=== PATIENT | male | born 1975 | race Caucasian/White ===

== ENCOUNTER → 2017-05-07 | Outpatient (CLI) | payer OTHER ==
[~2017-05-07] MED LIST: ABILIFY10 MG PO; AMITIZA 24 MCG24 MCG PO; AMITRIPTYLINE H25 M2 PO; ARTHRITIS PAIN650 M3 OR; ATIVAN1 MG PO; BACLOFEN 10 MG10 MG PO; BACLOFEN 10MG T10 M1 PO; BACLOFEN 10MG T10 MG PO; BACTRIM DS TAB1 EACH PO; CLONAZEPAM 0.50.5 M1 PO; CLONAZEPAM 1 MG1 M1 PO; CLONIDINE0.1 PO; COLACE100 MG OR; CYMBALTA60 MG PO; DARVOCET-N 1001 EAC1 PO; DEPAKOTE ER500 MG PO; DESYREL100 MG PO; DIAZEPAM 10 MG10 M1 OR; DIAZEPAM 5 MG5 M1 PO; DILAUDID 4 MG TA4 M1 PO; DILAUDID 4 MG TA4 MG PO; DURAGESIC1 EAC2 TRANSDERM; EFFEXOR 5050 MG/1 T1 PO; EFFEXOR75 MG PO; ELAVIL PO; FENTANYL PATCH75 MCG TRANSDERM; FISH OIL 1,0001 EAC5 PO; FLEXERIL PO; FUROSEMIDE PO; HYDROCODON-ACE1 EAC5 PO; HYDROCODON-ACE1 EAC8 PO; HYDROCORTISONE3011 RECTAL; IMIPRAMINE HCL25 MG; IMIPRAMINE HCL25 MG PO; LASIX 20 MG TAB20 MG PO; LASIX 40 MG TAB40 M2 PO; LIDODERM 5%1 PATC1 TOP; LIDODERM 5%1 PATCH TD; LIDODERM 5%1 PATCH TOP; LYRICA 50 MG50 MG PO; LYRICA 75 MG CA75 MG PO; MEDROLDOSEPACK PO; MELOXICAM7.5 MG PO; METHOCARBAMOL500 M2 PO; MINIPRESS2 MG PO; MS CONTIN15 MG PO; MS CONTIN30 MG PO; NABUMETONE 750750 M1 PO; NAPROSYN500 MG PO; NEURONTIN600 MG PO; NICOTINE TRANSD21 M1; NORCO 10-325 T1 EACH PO; NORCO 5-325 TA1 EACH PO; OXYCODONE HCL5 M1; OXYCODONE-APAP1 EAC6 PO; OXYCONTIN CR 1010 M1 OR; PERCOCET 5-3251 EACH OR; PERCOCET 5-3251 EACH PO; PERCOCET 7.5-31 EACH PO; PERCOCET PO; PRISTIQ100 MG PO; RAPAFLO8 MG PO; RELAFEN PO; RELAFEN750 MG PO; RISPERDAL 1 MG T1 MG PO; RISPERDAL 3 MG T3 M1 PO; RISPERDAL2 MG PO; SUBOXONE 8 MG-1 EAC2 SL; TAMSULOSIN HCL0.4 M1 PER TUBE; TAMSULOSIN HCL0.4 MG PO; TEGRETOL XR100 MG PO; TEGRETOL XR200 MG PO; TIZANIDINE HCL4 M1 PO; TIZANIDINE HCL4 MG PO; TOFRANIL25 MG PO; TRAZADONE PO; TRAZODONE 150150 M1 PO; TRILEPTAL 300300 MG PO; TRILEPTAL150 MG PO; Trazodone PO; VALPROIC ACID250 MG PO; VENLAFAXINE PO; VISTARIL 25 MG25 M1 PO; VITAMINC500 PO; XANAX1 MG PO; baclofen PO
== END ==
LOC: RAD 14:27
DX: S99.912A Unspecified injury of left ankle, initial encounter (principal); X58.XXXA Exposure to other specified factors, initial encounter; Y93.89 Activity, other specified; Y92.89 Other specified places as the place of occurrence of the external cause; Y99.8 Other external cause status

== ENCOUNTER → 2017-07-21 | Outpatient (CLI) | payer OTHER | LOC: RAD 06:02 | DX: M47.892 Other spondylosis, cervical region (principal); M47.897 Other spondylosis, lumbosacral region; N32.89 Other specified disorders of bladder ==

== ENCOUNTER 2019-08-26 17:23 | Emergency (ER) | payer OTHER ==
[~2019-08-26] VITALS: Ht 190.5 cm; Wt 118.8 kg
[2019-08-26] MEDS ORDERED: BUSPAR30 MG PO (17:36)
[2019-08-26] MEDS ORDERED: KEFLEX500 M2 PO (17:36)
[2019-08-26] MEDS ORDERED: SENNA-DOCUSATE1 EAC1 PO (18:20)
[2019-08-26] MEDS ORDERED: NORCO 7.5-3251 EACH PO (18:20)
[2019-08-26 18:26] VITALS: BP 136/87
== END 2019-08-26 18:38 | disposition home or self-care (01) ==
LOC: ER 17:23
DX: M79.672 Pain in left foot (principal); Z79.899 Other long term (current) drug therapy; Z98.890 Other specified postprocedural states; X58.XXXA Exposure to other specified factors, initial encounter; Y93.01 Activity, walking, marching and hiking; Y92.89 Other specified places as the place of occurrence of the external cause; Y99.8 Other external cause status

== ENCOUNTER 2019-11-23 14:17 | Emergency (ER) | payer OTHER ==
[~2019-11-23] VITALS: Ht 190.5 cm; Wt 118.8 kg
--- NOTE | ~2019-11-23 | EMS ---
[address] [address] EMS Patient Care Report Name: ZIA GIRON Room #: REG BRAYAN Vasquez#: [id number] Admission: 11/23/19 Attend Phys: Discharge: Date of : 73 Report #: [id number] THIS REPORT FOR: //name// Report Transmitted: 11/23/2019 14:09 EMS Care Summary [facility] Incident [id number] @ 11/23/2019 13:48 Incident Location [address] [place] [address] Patient ZIA GIRON Male, 44 Years 1975 Patient Address [address] [place] [address] Patient History Past Traumatic Brain Injury,Back Pain (Chronic), Patient Allergies No known allergies, Patient Medications Cymbalta, Clonazepam, Gabapentin, Oxycodone, Vitamin D, Risperidone, Chief Complaint chronic back pain Disposition Transported No Lights/[place] Dispatch Reason Back Pain (Non-Traumatic) Transported To [facility] Narrative AOS to find 44 y/o male sitting upright in a chair in his own driveway with his bags packed next to him. pt is AAO4 and is breathing quickly but effectively with good skin signs. pt states he has chronic back pain and it has flared up over the past few days. Pt states pain has also spread to his testicles. Pt is [facility] [address] [place] [address] EMS Patient Care Report Name: ZIA GIRON Room #: REG [facility].#: [id number] Admission: 11/23/19 Attend Phys: Discharge: Date of : 73 Report #: [id number] able to self transfer to [facility] and is transported to [facility]. Initial Vitals @13:59P: 83,R: 20,BP: 150/79,Pain: 8/10,GCS: 15,SpO2: 96,Revised Trauma: 12, @14:07P: 92,R: 20,BP: 140/90,Pain: 8/10,GCS: 15,SpO2: 95,Revised Trauma: 12, Assessments @13:55MENTAL:No Abnormalities,SKIN:No Abnormalities,HEENT:Head/Face: No Abnormalities,Eyes: No Abnormalities,Neck/Airway: No Abnormalities,LUNG SOUNDS:General: No Abnormalities,Left Upper: No Abnormalities,Right Upper: No Abnormalities,Left Lower: No Abnormalities,Right Lower: No Abnormalities,ABDOMEN:General: No Abnormalities,Left Upper: No Abnormalities,Right Upper: No Abnormalities,Left Lower: No Abnormalities,Right Lower: No Abnormalities,PELVIS//GI:No Abnormalities,EXTREMITIES:Left Arm: No Abnormalities,Right Arm: No Abnormalities,Left Leg: No Abnormalities,Right Leg: No Abnormalities,PULSE:NEURO:No Abnormalities, Impression Back Pain Timeline 13:44,Call Received 13:44,Psap Call 13:48,Dispatched 13:48,En Route 13:52,On Scene 13:53,At Patient 13:58,Depart Scene 13:59,BP: 150/79 M,PULSE: 83,RR: 20 R,SPO2: 96 Ox,ETCO2: ,BG: ,PAIN: 8,GCS: 15, 14:07,BP: 140/90 M,PULSE: 92,RR: 20 R,SPO2: 95 Ox,ETCO2: ,BG: ,PAIN: 8,GCS: 15, 14:14,At Destination 14:35,Call Closed Disclaimer v1.1 Copyright 2020 [employer] This EMS Care Summary contains data elements from the applicable legal record (which may be displayed differently). It is designed to provide pertinent information for the following purposes: continuity of care, clinical quality, and state data reporting. The complete legal record is available to ED staff and administrators of the receiving hospital in [employer]'s Patient Tracker. All data is provided "as is."
[~2019-11-23 14:17] MED LIST changes: +BUSPAR30 MG PO; +KEFLEX500 M2 PO; +NORCO 7.5-3251 EACH PO; +SENNA-DOCUSATE1 EAC1 PO
[2019-11-23 15:39] LABS: ABSOLUTE NEUTROPHILS 4.5 thou/uL (1.4-8.2); BASOPHILS 1.1 % (0.0-2.0); EOSINOPHILS 2.6 % (0.0-3.0); HEMATOCRIT 37.9 % (42.0-52.0); HEMOGLOBIN 13.3 gm/dL (14.0-18.0); LYMPHOCYTES 23.4 % (24.0-44.0); MCH 31.8 pg (26.0-34.0); MCHC 35.2 g/dL (28.0-37.0); MCV 90.6 fL (80.0-100.0); MONOCYTES 8.3 % (1.0-8.0); PLATELET COUNT 218 thou/uL (150-400); POLYS 64.6 % (36.0-66.0); RBC 4.19 mil/uL (4.50-6.00); RDW 14.3 % (10.5-14.5); WBC 6.9 thou/uL (4.0-11.0)
[2019-11-23 15:47] LABS: CALCIUM 8.8 mg/dL (8.5-10.1); CREATININE 0.7 mg/dL (0.7-1.3); POTASSIUM 4.3 mmol/L (3.5-5.1)
[2019-11-23 15:54] LABS: ALBUMIN 4.2 g/dL (3.4-5.0); TOTAL BILIRUBIN 0.6 mg/dL (0.2-1.0); TOTAL PROTEIN 7.2 g/dL (6.4-8.2)
[2019-11-23 17:02] LABS: URINE BILIRUBIN NEGATIVE (Negative); URINE BLOOD NEGATIVE (Negative); URINE CLARITY CLEAR; URINE COLOR YELLOW; URINE GLUCOSE-RANDOM* NEGATIVE (Negative); URINE KETONES NEGATIVE (Negative); URINE LEUKOCYTES-REFLEX NEGATIVE (Negative); URINE NITRITE-REFLEX NEGATIVE (Negative); URINE PROTEIN (DIPSTICK) NEGATIVE (Negative); URINE UROBILINOGEN 0.2 E.U./dl (0.2-1.0)
[2019-11-23] MEDS ORDERED: NORCO 5-325 TA1 EAC2 PO (18:42)
[2019-11-23 19:01] VITALS: BP 159/68
== END 2019-11-23 19:03 | disposition home or self-care (01) ==
LOC: ER 14:17
PROVIDERS: Emergency Medicine
DX: N20.0 Calculus of kidney (principal); E87.1 Hypo-osmolality and hyponatremia; F32.9 Major depressive disorder, single episode, unspecified; F41.9 Anxiety disorder, unspecified; Z79.899 Other long term (current) drug therapy; Z79.2 Long term (current) use of antibiotics; Z98.890 Other specified postprocedural states

== ENCOUNTER → 2020-02-14 | Outpatient (CLI) | payer OTHER ==
[~2020-02-14] MED LIST changes: +NORCO 5-325 TA1 EAC2 PO
== END ==
LOC: RAD 14:42
PROVIDERS: ATTEND Family Medicine
DX: M79.671 Pain in right foot (principal); M25.571 Pain in right ankle and joints of right foot